=== PATIENT | female | born 1955 | race Caucasian/White ===

== ENCOUNTER 2016-04-27 10:27 | Outpatient (CLI) | payer MEDICAID | END 2016-04-27 10:28 | disposition home or self-care (01) | DX: Z79.01 Long term (current) use of anticoagulants (principal) ==

== ENCOUNTER 2016-05-08 16:30 | Outpatient (CLI) | payer MEDICAID | END 2016-05-08 16:31 | DX: N39.0 Urinary tract infection, site not specified (principal) ==

== ENCOUNTER 2016-05-09 10:02 | Outpatient (CLI) | payer MEDICAID | END 2016-05-09 10:03 | disposition home or self-care (01) | DX: N18.4 Chronic kidney disease, stage 4 (severe) (principal); N39.0 Urinary tract infection, site not specified ==

== ENCOUNTER 2016-05-11 13:14 | Outpatient (CLI) | payer MEDICAID | END 2016-05-11 13:15 | disposition home or self-care (01) | DX: N18.4 Chronic kidney disease, stage 4 (severe) (principal) ==

== ENCOUNTER 2016-05-18 09:47 | Outpatient (CLI) | payer MEDICAID | END 2016-05-18 09:48 | disposition home or self-care (01) | DX: Z79.01 Long term (current) use of anticoagulants (principal) ==

== ENCOUNTER 2016-05-21 08:30 | Outpatient (CLI) | payer MEDICAID | END 2016-05-21 08:31 | disposition home or self-care (01) | DX: N39.0 Urinary tract infection, site not specified (principal) ==

== ENCOUNTER 2016-06-07 14:31 | Outpatient (CLI) | payer MEDICAID | END 2016-06-07 14:32 | disposition home or self-care (01) | DX: Z79.01 Long term (current) use of anticoagulants (principal) ==

== ENCOUNTER 2016-06-22 10:01 | Outpatient (CLI) | payer MEDICAID | END 2016-06-22 10:02 | disposition home or self-care (01) | DX: Z79.01 Long term (current) use of anticoagulants (principal) ==

== ENCOUNTER 2016-07-03 20:16 | Outpatient (CLI) | payer MEDICAID | END 2016-07-03 20:17 | disposition critical access hospital (66) | DX: R55 Syncope and collapse (principal); S01.81XA Laceration without foreign body of other part of head, initial encounter; W06.XXXA Fall from bed, initial encounter; Y92.003 Bedroom of unspecified non-institutional (private) residence as the place of occurrence of the external cause | CPT/HCPCS: A0425; A0429 ==

== ENCOUNTER 2016-07-03 20:34 | Emergency (ER) | payer MEDICAID ==
[2016-07-03] MEDS ORDERED: LIDOCAINE 1% 50 ML MDV SUBQ STA (20:46)
[2016-07-03] MEDS ORDERED: LIDOCAINE 1% 2 ML VIAL ONE ×2 (20:51→20:52)
[2016-07-03] MEDS ORDERED: ONDANSETRON 4 MG/2 ML VIAL ONE (21:11)
[2016-07-03] MEDS ORDERED: ONDANSETRON 4 MG/2 ML VIAL IVP STA (21:12)
[2016-07-03] MEDS ORDERED: MORPHINE 2 MG/ML SYRINGE IVP STA ×2 (21:19→22:47)
[2016-07-03] MEDS ORDERED: MORPHINE 2 MG/ML SYRINGE ONE ×2 (21:35→22:46)
[2016-07-03] MEDS ORDERED: PROMETHAZINE INJ 25 MG in SODIUM CHLORIDE 0.9% 50 ML IV STA (22:02)
[2016-07-03] MEDS ORDERED: PROMETHAZINE 25 MG/1 ML VIAL ONE (22:03)
[2016-07-03] MEDS ORDERED: PROTHROMBIN COMPLEX CONC 500 UNIT VIAL IVP STA (22:12)
[2016-07-03] MEDS ORDERED: PROTHROMBIN COMPLEX CONC 500 UNIT VIAL ONE (22:23)
== END 2016-07-03 23:00 | disposition short-term general hospital (02) ==
DX: S06.5X0A Traumatic subdural hemorrhage without loss of consciousness, initial encounter (principal); S01.81XA Laceration without foreign body of other part of head, initial encounter; S80.01XA Contusion of right knee, initial encounter; W18.39XA Other fall on same level, initial encounter; Y92.009 Unspecified place in unspecified non-institutional (private) residence as the place of occurrence of the external cause; I10 Essential (primary) hypertension; I25.10 Atherosclerotic heart disease of native coronary artery without angina pectoris; I25.2 Old myocardial infarction; I48.91 Unspecified atrial fibrillation; Z95.5 Presence of coronary angioplasty implant and graft; Z79.01 Long term (current) use of anticoagulants; Z95.0 Presence of cardiac pacemaker; Z79.82 Long term (current) use of aspirin
CPT/HCPCS: 36415; 51702; 70450; 80048; 84484; 85025; 85610; 85730; 93005; 93010; 96365; 96375; 99284; 99291; C9132

== ENCOUNTER 2017-03-21 08:00 | Outpatient (CLI) | payer MEDICAID | END 2017-03-21 08:01 | LOC: LAB.R 08:00 | PROVIDERS: ATTEND Nurse Practitioner Family | DX: E11.22 Type 2 diabetes mellitus with diabetic chronic kidney disease (principal) | CPT/HCPCS: 87086 ==

== ENCOUNTER 2017-08-06 08:00 | Outpatient (CLI) | payer MEDICAID ==
[2017-08-06 17:35] LABS: MUDS CUTOFF CONCENTRATIONS CUTOFF CONC BELOW:
[2017-08-06 18:22] LABS: AMPHETAMINE SCREEN,URINE NEGATIVE (NEGATIVE); BENZODIAZEPINES SCREEN, URINE NEGATIVE (NEGATIVE); COCAINE SCREEN URINE NEGATIVE (NEGATIVE); METHADONE SCREEN, URINE NEGATIVE (NEGATIVE); METHAMPHETAMINES SCREEN, URINE NEGATIVE (NEGATIVE); OPIATE SCREEN, URINE NEGATIVE (NEGATIVE); OXYCODONE SCREEN, URINE NEGATIVE (NEGATIVE); PROPOXYPHENE SCREEN, URINE NEGATIVE (NEGATIVE); TRICYCLIC ANTIDEPRESSANT,URINE NEGATIVE (NEGATIVE)
== END 2017-08-06 08:01 | disposition home or self-care (01) ==
LOC: LAB.R 08:00
PROVIDERS: ATTEND Nurse Practitioner Family
DX: Z79.891 Long term (current) use of opiate analgesic (principal)
CPT/HCPCS: 80306

== ENCOUNTER 2017-08-22 12:53 | Outpatient (CLI) | payer MEDICAID ==
[2017-08-22 17:48] LABS: BASOPHILS # (AUTO) 0.1 10^3/uL (0.0-0.1); BASOPHILS % (AUTO) 1.1 %; EOSINOPHILS # (AUTO) 0.2 10^3/uL (0.0-0.7); HGB - HEMOGLOBIN 9.3 g/dL (12.0-16.0); LYMPHOCYTES # (AUTO) 1.4 10^3/uL (1.5-3.5); MEAN CORPUSCULAR HEMOGLOBIN 29.8 pg (27.0-31.0); MEAN CORPUSCULAR HGB CONC 32.7 g/dL (32.0-36.0); MEAN PLATELET VOLUME 9.8 fL (7.9-10.8); MONOCYTES # (AUTO) 0.5 10^3/uL (0.0-1.0); MONOCYTES % (AUTO) 6.3 %; NEUTROPHILS % (AUTO) 69.6 %; PLT - PLATELET COUNT 223 10^3/uL (130-450); RED BLOOD COUNT 3.12 10^6/uL (4.20-5.40); RED CELL DISTRIBUTION WIDTH 12.5 % (12.0-15.0); WHITE BLOOD COUNT 7.1 x10^3/uL (4.8-10.8)
[2017-08-22 18:20] LABS: HB2 TOTAL 10.1 g/dL; HEMOGLOBIN A1C 0.62 g/dL; HEMOGLOBIN A1C % 7.8 % (4.6-6.2)
[2017-08-22 18:59] LABS: ALBUMIN 3.7 g/dL (3.2-5.5); ALBUMIN/GLOBULIN RATIO 0.9 (1.0-2.2); BILIRUBIN,TOTAL 0.5 mg/dL (0.2-1.0); TOTAL PROTEIN 7.7 g/dL (6.7-8.2)
== END 2017-08-22 12:54 | disposition home or self-care (01) ==
LOC: LAB.F 12:53
PROVIDERS: ATTEND Nurse Practitioner Family
DX: E11.22 Type 2 diabetes mellitus with diabetic chronic kidney disease (principal); D53.9 Nutritional anemia, unspecified; I49.5 Sick sinus syndrome; Z79.891 Long term (current) use of opiate analgesic; G90.1 Familial dysautonomia [Riley-Day]; N19 Unspecified kidney failure; I10 Essential (primary) hypertension; I25.2 Old myocardial infarction; Z86.79 Personal history of other diseases of the circulatory system; I48.91 Unspecified atrial fibrillation; Z79.899 Other long term (current) drug therapy; Z95.0 Presence of cardiac pacemaker
CPT/HCPCS: 36415; 80050; 82043; 83036; 83540; 83880; 84466

== ENCOUNTER 2018-04-19 17:51 | Outpatient (CLI) | payer MEDICAID | END 2018-04-19 17:52 | disposition home or self-care (01) | LOC: EMS 17:51 | PROVIDERS: ATTEND Surgery | DX: R11.2 Nausea with vomiting, unspecified (principal); N18.4 Chronic kidney disease, stage 4 (severe) | CPT/HCPCS: A0425; A0429; A0999 ==

== ENCOUNTER 2018-12-23 11:11 | Outpatient (CLI) | payer MEDICARE, MEDICAID ==
[2018-12-23 11:58] LABS: ALT ALANINE AMINOTRANSFERASE 14 IU/L (10-60); AST ASPARTATE AMINOTRANSFERASE 12 IU/L (10-42); CHOL/HDL RATIO 2.2 (<4.4); CHOLESTEROL 138 mg/dL; HDL CHOLESTEROL 63 mg/dL; LDL CHOLESTEROL,CALCULATED 59 mg/dL; LDL/HDL RATIO 0.9 (<4.4); VLDL CHOLESTEROL 16 mg/dL
== END 2018-12-23 11:12 | disposition home or self-care (01) ==
LOC: LAB 11:11
PROVIDERS: ATTEND Internal Medicine
DX: E78.5 Hyperlipidemia, unspecified (principal)
CPT/HCPCS: 36415; 80061; 83721; 84450; 84460

== ENCOUNTER 2019-01-25 12:32 | Emergency (ER) | payer MEDICARE, MEDICAID ==
[2019-01-25] MEDS ORDERED: SODIUM CHLORIDE 0.9% 1,000 ML IV ONE ×2 (12:54→14:07)
--- NOTE | 2019-01-25 12:57 | ED Physician Documentation ---
PD HPI NVD - Stated complaint Stated Complaint: VOMITING - Chief complaint Chief Complaint: Abd Pain - History obtained from History obtained from: Patient - History of Present Illness Timing - onset: Other (This is a 63-year-old woman with history of autonomic dysautonomia Her labile blood pressures eventually caused renal failure. She had a surgery 2 years ago because the autonomic issue was felt due to an aberrant artery at the brainstem and she had cranial surgery to correct this. She still Occasionally has labile blood pressures which cause nausea and vomiting. Starting 4 days ago she developed high blood pressures which she treated with marijuana and hydralazine. Despite that she continued to vomit and was unable to keep down p.o. Phenergan. At this point she just feels very dehydrated and is still nauseous but thinks at this point it is due to the dehydration as opposed to the primary issue as her blood pressures have better after using nitro patch. She denies any abdominal pain or fever. No changes in bowel movements. She does peritoneal dialysis which she skipped last night but she did do on Saturday night.) Review of Systems Ten Systems: 10 systems reviewed and negative Constitutional: reports: Fatigue. denies: Fever, Chills GI: reports: Nausea, Vomiting. denies: Abdominal Pain, Diarrhea PD PAST MEDICAL HISTORY - Past Medical History Past Medical History: Yes Cardiovascular: Hypertension, Coronary artery disease, [place], Atrial fibrillation, Arrhythmia Respiratory: None Endocrine/Autoimmune: None GI: None : None HEENT: None Psych: None Musculoskeletal: None Derm: None - Past Surgical History Past Surgical History: Yes Cardiovascular: Coronary stent, Pacemaker HEENT: Tonsil/Adenoidectomy - Present Medications Home Medications: Ambulatory Orders Medication Instructions Recorded Confirmed Aspirin 81 mg DAILY 02/03/16 05/22/18 Atorvastatin Calcium 40 mg DAILY 02/03/16 05/22/18 LORazepam [Ativan] 0.5 mg PO BID PRN 02/03/16 05/22/18 Promethazine Supp [Phenergan Supp] 25 mg BID PRN 02/03/16 05/22/18 Cholecalciferol (Vitamin D3) 1 cap PO DAILY 07/03/16 05/22/18 [Vitamin D3] HYDROcodone/ACET 10/325 [[place] 10 1 tab PO QID PRN 07/03/16 05/22/18 mg/325 mg] Nitroglycerin [Nitrostat] 0.3 mg SL PRN MDD 0.9 05/22/18 Sodium Chloride 1 gm PO DAILY 05/22/18 05/22/18 - Allergies Allergies/Adverse Reactions: Allergies Allergy/AdvReac Type Severity Reaction Status Date / Time felodipine Allergy Unknown Verified 01/25/19 12:47 lisinopril Allergy Hives Verified 01/25/19 12:47 Sulfa (Sulfonamide AdvReac Intermediate Hives Verified 01/25/19 12:47 Antibiotics) amlodipine besylate * AdvReac Unknown Unknown Verified 01/25/19 12:47 [From [facility]] losartan [Losartan] AdvReac Unknown Unknown Verified 01/25/19 12:47 - Social History Does the pt smoke?: No Smoking Status: Never smoker Does the pt drink ETOH?: No Does the pt have substance abuse?: No - Immunizations Immunizations are current?: No - POLST Patient has POLST: No PD ED PE NORMAL - Vitals Vital signs reviewed: Yes - General General: Alert and oriented X 3, No acute distress - HEENT HEENT: Other (Dry mucous membranes) - Neck Neck: Supple, no meningeal sign, No bony TTP - Cardiac Cardiac: RRR, No murmur - Respiratory Respiratory: No respiratory distress, Clear bilaterally - Abdomen Abdomen: Other (Diminished bowel tones, nontender, there is a peritoneal dialysis catheter in the right mid abdomen without evidence of infection.) - Extremities Extremities: No edema - Neuro Neuro: Alert and oriented X 3, Normal speech Results - Vitals Vitals: Vital Signs - 24 hr 01/25/19 01/25/19 12:46 14:58 Temperature 37 C Heart Rate 85 85 Respiratory 20 Rate Blood Pressure 134/68 H O2 Saturation 98 97 Oxygen O2 Source Room air - Labs Labs: Laboratory Tests 01/25/19 13:06 Sodium 137 Potassium 3.8 Chloride 99 L Carbon Dioxide 25 Anion Gap 13.0 BUN 64 H Creatinine 5.0 H Estimated GFR (MDRD) 9 L Glucose 227 H Calcium 8.5 Total Bilirubin 0.6 AST 14 ALT 11 Alkaline Phosphatase 89 Total Protein 7.5 Albumin 3.5 Globulin 4.0 Albumin/Globulin Ratio 0.9 L Lipase 37 PD MEDICAL DECISION MAKING - ED course ED course: This is a 63-year-old woman who presents with episode of vomiting, no evidence of bowel obstruction, her electrolytes are okay. She is on peritoneal dialysis. She is had this several times before due to her autonomic dysautonomia and felt like IV fluids would be helpful and curative. After 2 L of fluid she felt much better and was no longer nauseous, passed an oral challenge, remained nontender on abdominal examination Departure - Departure Disposition: 01 Home, Self Care Clinical Impression: Dehydration Vomiting Qualifiers: Vomiting type: unspecified Vomiting Intractability: non-intractable Nausea presence: without nausea Qualified Code(s): R11.11 - Vomiting without nausea Condition: Good Record reviewed to determine appropriate education?: Yes Instructions: ED Dehydration, ED Nausea Vomiting Comments: Return to anytime for new worsening symptoms, do your dialysis tonight as usual.
[2019-01-25 13:26] LABS: ALBUMIN 3.5 g/dL (3.2-5.5); ALBUMIN/GLOBULIN RATIO 0.9 (1.0-2.2); BILIRUBIN,TOTAL 0.6 mg/dL (0.2-1.0); CALCIUM 8.5 mg/dL (8.5-10.3); TOTAL PROTEIN 7.5 g/dL (6.7-8.2)
[2019-01-25 15:02] VITALS: BP 188/84
== END 2019-01-25 15:45 | disposition home or self-care (01) ==
LOC: ED 12:32
DX: E86.0 Dehydration (principal); R11.11 Vomiting without nausea; I10 Essential (primary) hypertension
CPT/HCPCS: 36415; 80053; 83690; 96360; 99284

== ENCOUNTER 2019-10-27 15:13 | Outpatient (CLI) | payer MEDICARE, MEDICAID ==
[2019-10-27 15:40] LABS: CALCIUM 9.3 mg/dL (8.5-10.3); CREATININE 5.7 mg/dL (0.4-1.0)
[2019-10-27 15:47] LABS: HEMOGLOBIN A1C 0.86 g/dL; HEMOGLOBIN A1C % 9.3 % (4.6-6.2)
== END 2019-10-27 15:14 | disposition home or self-care (01) ==
LOC: LAB 15:13
PROVIDERS: ATTEND Internal Medicine
DX: E11.22 Type 2 diabetes mellitus with diabetic chronic kidney disease (principal); N18.5 Chronic kidney disease, stage 5
CPT/HCPCS: 36415; 80048; 83036

== ENCOUNTER 2020-02-16 13:01 | Outpatient (CLI) | payer MEDICARE, MEDICAID ==
[2020-02-16 13:55] LABS: ALBUMIN 3.6 g/dL (3.2-5.5); CALCIUM 9.6 mg/dL (8.5-10.3); CREATININE 6.6 mg/dL (0.4-1.0); MAGNESIUM 2.5 mg/dL (1.7-2.8); PHOSPHORUS 7.1 mg/dL (2.5-4.6)
== END 2020-02-16 13:02 | disposition home or self-care (01) ==
LOC: LAB 13:01
PROVIDERS: ATTEND Internal Medicine Nephrology
DX: N18.6 End stage renal disease (principal)
CPT/HCPCS: 36415; 80069; 83735

== ENCOUNTER 2020-02-22 13:54 | Outpatient (CLI) | payer MEDICARE, MEDICAID ==
[2020-02-22 14:19] LABS: BILIRUBIN,URINE NEGATIVE (NEGATIVE); GLUCOSE, URINE (UA) NEGATIVE (NEGATIVE); KETONES,URINE (UA) TRACE mg/dL (NEGATIVE); LEUKOCYTE ESTERASE, URINE MODERATE (NEGATIVE); NITRITE,URINE NEGATIVE (NEGATIVE); OCCULT BLOOD,URINE NEGATIVE (NEGATIVE); PROTEIN,URINE 30 mg/dL (NEGATIVE); UROBILINOGEN,URINE 0.2 (NORMAL) E.U./dL (NORMAL)
[2020-02-22 14:24] LABS: BASOPHILS # (AUTO) 0.1 10^3/uL (0.0-0.1); BASOPHILS % (AUTO) 0.6 %; EOSINOPHILS % (AUTO) 0.2 %; HGB - HEMOGLOBIN 11.3 g/dL (12.0-16.0); LYMPHOCYTES # (AUTO) 1.3 10^3/uL (1.5-3.5); LYMPHOCYTES % (AUTO) 12.5 %; MEAN CORPUSCULAR HEMOGLOBIN 30.5 pg (27.0-31.0); MEAN CORPUSCULAR HGB CONC 31.7 g/dL (32.0-36.0); MEAN CORPUSCULAR VOLUME 96.5 fL (81.0-99.0); MEAN PLATELET VOLUME 10.4 fL (7.9-10.8); MONOCYTES # (AUTO) 0.6 10^3/uL (0.0-1.0); MONOCYTES % (AUTO) 5.7 %; NEUTROPHILS # (AUTO) 8.4 10^3/uL (1.5-6.6); NEUTROPHILS % (AUTO) 80.5 %; PLT - PLATELET COUNT 249 10^3/uL (130-450); RED CELL DISTRIBUTION WIDTH 13.1 % (12.0-15.0); WHITE BLOOD COUNT 10.5 x10^3/uL (4.8-10.8)
[2020-02-22 14:31] LABS: CLARITY,URINE CLEAR (CLEAR); RBC,URINE 0-5 /HPF (0-5); SQUAMOUS EPITHELIAL CELL,UR RARE Squamous (<= Few)
[2020-02-22 14:32] LABS: BACTERIA,URINE Few /HPF (None Seen); CASTS, URINE 0-2 Course Granular /LPF; EPITHELIAL CELLS,UR RARE Transitional /HPF (<= Few)
[2020-02-22 15:09] LABS: ALBUMIN 3.8 g/dL (3.2-5.5); CALCIUM 9.3 mg/dL (8.5-10.3); PHOSPHORUS 7.9 mg/dL (2.5-4.6)
[2020-02-22 15:15] LABS: CREATININE 8.5 mg/dL (0.4-1.0)
== END 2020-02-22 13:55 | disposition home or self-care (01) ==
LOC: LAB 13:54
PROVIDERS: ATTEND Internal Medicine Nephrology
DX: N18.6 End stage renal disease (principal); Z99.2 Dependence on renal dialysis
CPT/HCPCS: 36415; 80069; 81001; 83735; 85025; 87086

== ENCOUNTER 2020-11-04 15:58 | Outpatient (CLI) | payer MEDICARE, MEDICAID ==
[2020-11-04 16:21] LABS: HCT - HEMATOCRIT 33.4 % (37.0-47.0)
== END 2020-11-04 15:59 | disposition home or self-care (01) ==
LOC: LAB 15:58
PROVIDERS: ATTEND Internal Medicine Nephrology
DX: N18.6 End stage renal disease (principal); D63.1 Anemia in chronic kidney disease
CPT/HCPCS: 36415; 85014; 85018

== ENCOUNTER 2021-04-05 09:18 | Outpatient (CLI) | payer MEDICARE, MEDICAID ==
[2021-04-05 14:08] LABS: HCT - HEMATOCRIT 42.1 % (37.0-47.0); HGB - HEMOGLOBIN 14.2 g/dL (12.0-16.0); MEAN CORPUSCULAR HEMOGLOBIN 31.1 pg (27.0-31.0); MEAN CORPUSCULAR HGB CONC 33.7 g/dL (32.0-36.0); MEAN CORPUSCULAR VOLUME 92.1 fL (81.0-99.0); MEAN PLATELET VOLUME 10.8 fL (7.9-10.8); RED BLOOD COUNT 4.57 10^6/uL (4.20-5.40); RED CELL DISTRIBUTION WIDTH 13.9 % (12.0-15.0); WHITE BLOOD COUNT 7.4 x10^3/uL (4.8-10.8)
[2021-04-05 14:59] LABS: ALBUMIN 3.4 g/dL (3.2-5.5); CALCIUM 10.2 mg/dL (8.5-10.3); CARBON DIOXIDE - CO2 21 mmol/L (21-32); CHLORIDE 85 mmol/L (101-111); CHOL/HDL RATIO 2.5 (<4.4); CHOLESTEROL 92 mg/dL; GFR - MDRD 6 (>89); GLUCOSE 289 mg/dL (70-100); HDL CHOLESTEROL 37 mg/dL; LDL CHOLESTEROL,CALCULATED 37 mg/dL; MAGNESIUM 2.3 mg/dL (1.7-2.8); PHOSPHORUS 7.3 mg/dL (2.5-4.6); POTASSIUM 3.9 mmol/L (3.5-5.0); SODIUM 127 mmol/L (135-145); TRIGLYCERIDES 89 mg/dL; VLDL CHOLESTEROL 18 mg/dL
[2021-04-05 15:19] LABS: BUN - BLOOD UREA NITROGEN 171 mg/dL (6-20)
== END 2021-04-05 09:19 | disposition home or self-care (01) ==
LOC: LAB.S 09:18
PROVIDERS: ATTEND Internal Medicine Nephrology
DX: N18.6 End stage renal disease (principal)
CPT/HCPCS: 36415; 80061; 80069; 83721; 83735; 85027

== ENCOUNTER 2021-05-19 08:00 | Outpatient (CLI) | payer MEDICARE, MEDICAID ==
[2021-05-19 20:34] LABS: HCT - HEMATOCRIT 27.4 % (37.0-47.0); HGB - HEMOGLOBIN 8.7 g/dL (12.0-16.0); MEAN CORPUSCULAR HGB CONC 31.8 g/dL (32.0-36.0); MEAN CORPUSCULAR VOLUME 94.5 fL (81.0-99.0); MEAN PLATELET VOLUME 10.3 fL (7.9-10.8); RED BLOOD COUNT 2.9 10^6/uL (4.20-5.40); RED CELL DISTRIBUTION WIDTH 14.3 % (12.0-15.0); WHITE BLOOD COUNT 7.3 x10^3/uL (4.8-10.8)
[2021-05-19 21:18] LABS: ALBUMIN 2.7 g/dL (3.2-5.5); ALBUMIN/GLOBULIN RATIO 0.8 (1.0-2.2); BILIRUBIN,TOTAL 0.8 mg/dL (0.2-1.0); CALCIUM 9.2 mg/dL (8.5-10.3); CREATININE 5.4 mg/dL (0.4-1.0); PHOSPHORUS 5.3 mg/dL (2.5-4.6); POTASSIUM 3.4 mmol/L (3.5-5.0); TOTAL PROTEIN 6.1 g/dL (6.7-8.2)
== END 2021-05-19 23:59 | disposition home or self-care (01) ==
LOC: LAB.R 08:00
PROVIDERS: ATTEND Physician Assistant
DX: N18.6 End stage renal disease (principal)
CPT/HCPCS: 80053; 84100; 85027

== ENCOUNTER 2021-05-30 09:30 | Outpatient (CLI) | payer MEDICARE, MEDICAID | END 2021-05-30 09:31 | disposition home or self-care (01) | LOC: PC 09:30 | PROVIDERS: ATTEND Nurse Practitioner Adult Health | DX: Z51.5 Encounter for palliative care (principal); G89.29 Other chronic pain; G90.1 Familial dysautonomia [Riley-Day]; I13.2 Hypertensive heart and chronic kidney disease with heart failure and with stage 5 chronic kidney disease, or end stage renal disease; N18.6 End stage renal disease; I50.9 Heart failure, unspecified; R13.10 Dysphagia, unspecified; R11.2 Nausea with vomiting, unspecified; R73.9 Hyperglycemia, unspecified; Z79.84 Long term (current) use of oral hypoglycemic drugs; Z79.899 Other long term (current) drug therapy; Z99.2 Dependence on renal dialysis; Z74.01 Bed confinement status; Z66 Do not resuscitate; Z79.891 Long term (current) use of opiate analgesic; K59.03 Drug induced constipation; T40.2X5A Adverse effect of other opioids, initial encounter; F41.9 Anxiety disorder, unspecified; R63.0 Anorexia; R53.83 Other fatigue; M54.2 Cervicalgia; R51.9 Headache, unspecified; R07.0 Pain in throat; R07.89 Other chest pain | CPT/HCPCS: 99344 ==

== ENCOUNTER 2021-06-14 07:00 | Outpatient (CLI) | payer MEDICARE, MEDICAID ==
[2021-06-14 20:15] LABS: HCT - HEMATOCRIT 24.6 % (37.0-47.0); HGB - HEMOGLOBIN 8.1 g/dL (12.0-16.0); MEAN CORPUSCULAR HEMOGLOBIN 31.5 pg (27.0-31.0); MEAN CORPUSCULAR HGB CONC 32.9 g/dL (32.0-36.0); MEAN CORPUSCULAR VOLUME 95.7 fL (81.0-99.0); MEAN PLATELET VOLUME 10.1 fL (7.9-10.8); RED BLOOD COUNT 2.57 10^6/uL (4.20-5.40); RED CELL DISTRIBUTION WIDTH 15.9 % (12.0-15.0); WHITE BLOOD COUNT 8.2 x10^3/uL (4.8-10.8)
[2021-06-14 20:30] LABS: ALBUMIN 2.6 g/dL (3.2-5.5); ALBUMIN/GLOBULIN RATIO 0.8 (1.0-2.2); BILIRUBIN,TOTAL 0.6 mg/dL (0.2-1.0); CALCIUM 9.4 mg/dL (8.5-10.3); POTASSIUM 3.3 mmol/L (3.5-5.0); TOTAL PROTEIN 5.7 g/dL (6.7-8.2)
== END 2021-06-14 23:59 | disposition home or self-care (01) ==
LOC: LAB.R 07:00
PROVIDERS: ATTEND Internal Medicine Nephrology
DX: N18.6 End stage renal disease (principal)
CPT/HCPCS: 80053; 84100; 85027

== ENCOUNTER 2021-06-28 10:30 | Outpatient (CLI) | payer MEDICARE, MEDICAID ==
--- NOTE | 2021-06-28 16:55 | CONSULTATION NOTE ---
Palliative Care Follow Up - Referral Referring Provider: Dr. Mauro Aden Time of Visit: [id number] Referral setting: Home Referral Reason: Acute on Chronic Pain/CKD 5 on peritoneal dialysis/Bedbound status - Information Sources Records reviewed: Previous records reviewed, Other (patient logs) History/Review of Systems obtained from: Patient, Family ( Kyle) Exam limitations: Clinical condition (patient min. verbal; answers not congruent) - History of Present Illness Update Brief HPI Update: This is a 65-year-old female for end-stage renal disease, currently on peritoneal dialysis, known CAD s/p drug-eluting stent to RCA 07/13, persistent atrial fib, known sick sinus syndrome, s/p dual-chamber pacemaker and ischemic cardiomyopathy. Patient has continued to deteriorate fairly rapidly since March, with worsening labs, decreased ability to eat, bedbound status, and worsening autonomic dysfunction. She has remained persistently bedbound, did work with home PT/OT with no improvement. Patient has been cared for by her family since her first brain surgery in 11/2015. Her daughter moved in at that t aamir to assist, she and her brother are [employer] workers, her Kyle is her primary caregiver whom I am meeting with today.She continues to fluctuate as far as awareness, cognitive functioning, and though presents as high risk for choking has not choked as best they know so far. Patient is in a hospital bed now which has eased care. She continues with lethargy, time she is quite clear and conversant and engaged and others difficult to arouse. is concerned about medications pain overall. Has been on gabapentin 100 mg for about a month, with improved pain management, but concerned as if it is cumulative and sedation. Patient currently only on small dose of lorazepam 0.25 mg at bedtime to help, has needed less hydrocodone 5 mg / 325 mg 1-2 a day, patient is unable to localize pain, but does demonstrate pain behaviors with loud moaning and responds with relaxation with medication. Other issue is the peritoneal dialysis, patient continues, with the dwell time at during day of 1500 mils, he is usually drained off her absorbs 200 -600 mils. He is still giving her fluids, she is getting about 32 ounces of water, is unable to eat, so is giving her "protein shakes" up to 4 a day average up to 6 at times. Patient per has not been given any protein restrictions, though this does equal 150 g, suspect this is not appropriate in the context of her disease process, has worked with a dietitian but has not found her helpful. Unable to find other alternatives for her to eat or drink, has only had solid food few bites may be half a dozen times over the last few months. Her blood sugars have been running okay with an average of 170 in the last 30 days. Her last labs on 06/14 shows sodium 129, potassium 3.3, BUN is actually decreased to 125 from 133 on 05/19, creatinine remains at 5.0, and GFR at 9. Her total protein is 5.7, with albumin of 2.6, she remains persistently anemic at 8.1.She has not though had further nausea or vomiting, this is seem to have resolved. Past Medical History: Congestive heart failure, hypertension, coronary artery disease, [place], atrial fib, valve disorder, sick sinus syndrome, headache/migraine, hyperglycemia attributed to peritoneal dialysis solution, chronic constipation, blindness, depression, anxiety, fatigue, posterior fossa decompression craniotomy for left vertebral artery without improvement of blood pressure known as rostral ventral lateral Medullary syndrome. 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 They do augment her health care with integrative treatment. She does have quite complex care, set up for peritoneal dialysis since 2019. Both her daughter and her son are [employer] workers, it is a multigenerational household with 9 people living there. Her remains her main caregiver but is back to work 4 days a week. Medications/Allergies - Medications Home Medications: Ambulatory Orders Medication Instructions Recorded Confirmed Promethazine Supp [Phenergan Supp] 25 mg BID PRN 02/03/16 06/29/21 Cholecalciferol (Vitamin D3) 1 cap PO DAILY 07/03/16 06/29/21 [Vitamin D3] Nitroglycerin [Nitrostat] 0.3 mg SL PRN PRN MDD 0.9 05/22/18 06/29/21 Acetaminophen [Tylenol] 1 - 2 tab PO Q4HR PRN 05/31/21 06/29/21 Gentamicin 0.3% Ophth Drops 1 ml TOP DAILY MDD at exit of 05/31/21 06/29/21 [Garamycin] peritoneal catheter HYDROcod/ACETAM 5/325 [[place] 5/325] 0.5 - 1 tab PO Q4HR PRN MDD 5 05/31/21 06/29/21 Heparin [Heparin Sodium] 3,000 units SUBQ DAILY 05/31/21 06/29/21 Insulin Lispro [Humalog] 5 unit SUBQ DAILY MDD titrate to BS 05/31/21 06/29/21 LORazepam [Ativan] 0.25 - 0.5 mg PO BID PRN 05/31/21 06/29/21 Rosuvastatin Calcium [Crestor] 40 mg PO DAILY 05/31/21 06/29/21 Senna [Senokot] 1 - 2 tab PO BID PRN 05/31/21 06/29/21 Sevelamer [Renagel] 2 tab PO TID MDD titrate to intake 05/31/21 06/29/21 Vit B Comp No.3/Folic/C/Biotin 1 tab PO DAILY 05/31/21 06/29/21 [Nephro-[facility] Rx Tablet] polyethylene glycoL 3350 [Miralax] 17 gm PO BID 05/31/21 06/29/21 Ondansetron [Zuplenz] 4 mg PO Q6HR PRN 06/29/21 06/29/21 Pregabalin [Lyrica] 25 mg PO .QOD 06/29/21 06/29/21 - Allergies Allergies/Adverse Reactions: Allergies Allergy/AdvReac Type Severity Reaction Status Date / Time felodipine Allergy Unknown Verified 01/25/19 12:47 lisinopril Allergy Hives Verified 01/25/19 12:47 Sulfa (Sulfonamide AdvReac Intermediate Hives Verified 01/25/19 12:47 Antibiotics) amlodipine besylate * AdvReac Unknown Unknown Verified 01/25/19 12:47 [From [facility]] losartan [Losartan] AdvReac Unknown Unknown Verified 01/25/19 12:47 Review of Systems - Constitutional Constitutional: reports: Fatigue (sleeping more), Weakness, Poor appetite, Weight loss (last known weight 151; LMAC 29 on admit) - Eyes Eyes: reports: Vision loss, Other (keeps eyes closed most of time;) - Ears, Nose & Throat Ears, Nose & Throat: reports: Dry mouth - Cardiovascular Cardiovascular: reports: Decr. exercise tolerance. denies: Chest pain - Respiratory Respiratory: denies: SOB at rest - Gastrointestinal Gastrointestinal: reports: Nausea (much improved), Poor appetite, Early satiety, Other (unable to "eat"). denies: Constipation, Vomiting (resolved needing less ondansetron....2 tabs since ordered) - Genitourinary Genitourinary: reports: Incontinence (dark and smells of "ammonia"). denies: Hematuria - Musculoskeletal Musculoskeletal: reports: Other (bedbound; needs assist with bed mobility) - Integumentary Integumentary: reports: Dryness - Neurological Neurological: reports: General weakness, Dizziness, Memory problems, Other (slowed response with cognition) - Psychiatric Psychiatric: reports: Anxiety - Endocrine Endocrine: reports: Other (elevated BS) - Hematologic/Lymphatic Hematologic/Lymph: reports: Anemia. denies: Recurrent infections - All Other Systems All Other Systems: reports: Reviewed and negative Physical Exam - Vital Signs Temperature: 97.3 C Pulse Rate: 83 Respiratory Rate: 16 O2 Saturation: 96 (ra @ rest) Blood Pressure: 102/68 (manual; diff to hear ) - Physical Exam General Appearance: positive: Lethargic, Other (engages min. during visit unless spoken directly to) Eyes Bilateral: positive: Other (eyes closed; some dried drainage; enc refresh drops/moisturize) ENT: negative: Pharyngeal erythema, Oral lesions Neck: positive: No JVD, Trachea midline Cardiovascular: positive: Irregularly irregular Respiratory: positive: No respiratory distress, Diminished in bases (anteriorly) Abdomen: positive: Soft, Tenderness, Obese, Other (rounded with peritoneal drain) Skin: positive: Pallor, Dryness. negative: Rash Extremities: positive: No pedal edema Neurologic/Psychiatric: positive: Disoriented to time, Weakness, Slurred/abnml speech, Depressed mood/affect, Flat affect Palliative Care - POLST Patient has POLST: Yes POLST Status: DNR, Selective Treatment Pain: Pain improved, Comment (unable to localize; moaning ?reflexive) Feelings of wellbeing/Perceived Quality of Life: Comment ( perceives QOL as continuing to deteriorate) Sleep: Variable sleep pattern Constipation: Yes, Opoid induced, Managed (using miralax BID) Performance Status: Patient is bedbound needing assistance for bed mobility, and assistance with feeding. Total workers compensation claims assistant for any kind of pericare and bathing, more helpful with two persons. Bed has made a difference - Palliative Care Discussion: The patient's quality of life is continued decline, patient is currently bedbo und. Did make attempt through home health to improve access to back to wheelchair and join family in living room with TV. This was not an attainable goal unfortunately. Patient is quite isolated, does have some area times of clarity and interaction. Though has been reports these are becoming less and less. Patient is total care, continues to express to him that this is still acceptable, though is becoming less able to participate or demonstrate awareness of insight into his situation. He says that she has expressed she is "not ready to ", but patient's body continues to deteriorate. Patient's goals are to be focused on comfort and quality of life, spending time with family, and would like to at home. In separate conversation with , it is quite unnerving, as patient does have times where she is quite nonresponsive, and seems like she is "on her way out" but then rallies. As long as patient still demonstrates some decision-making capacity he will continue to provide interventions, aware at any point he can transition to hospice and withdraw care. Results - Lab Results Lab results reviewed: Yes Impression and Recommendations - Palliative Care Impression: This is a 65-year-old woman with fairly complicated presentation with end-stage renal disease on peritoneal dialysis. She does have known severe coronary artery disease, most recently with NSTEMI 07/13 including s/p pacemaker and stents, dealing with sequela of dysautonomia, worsening symptom burden, bedbound status, and fluctuating cognitive status. Patient is having some improvement in her nausea and vomiting, continues with anorexia and difficulty meeting caloric needs, has fluctuating levels of pain, anxiety, depression and severe persistent fatigue. Palliative care providing support for pain and symptom management, initiating follow-up for advanced care planning, coordinating care with nephrology and home health team as well as anticipatory guidance Recommendations/Counseling Done: 1. Acute on chronic pain. Patient's pain is multifactorial, including fluctuating neuropathic pain related to her dysautonomia, peripheral neuropathy and hyper analgesia, chronic back pain, neck pain radiating to her head with intermittent headaches. She had been initiated on gabapentin most a month ago, concern regarding increasing lethargy and attributing to gabapentin buildup. We did discuss transition to pregabalin shorter acting, could go every other day, and not lose improved pain management. She has been needing less hydrocodone, patient herself is unable to really participate in any kind of conversation regarding her pain. Family are basing decisions based on observations and it is complicated and patient does have some reflexive moaning as well as moaning that she uses to communicate her discomfort. 2. End-stage renal disease currently on peritoneal dialysis. Her numbers continue to still be quite alarming but "improving". The continue to work nephrology, home health RN is been providing blood draws, though it appears that having a pending discharge. 3. Protein calorie malnutrition. Seems to be some confusion regarding patient's protein allowances, did follow-up with dietitian, GG 1.2 to 1.3/kg for peritoneal dialysis. This was shared which would be about 3-4 shakes versus the pushing of 6. Discussed other alternatives for caloric intake that patient can manage, including soups, looked at higher potassium foods that she is at 3.3, and encourage small frequent feedings.Nausea and vomiting have improved, thus this has helped with her intake. 4. Bedbound status. Patient at this point in time will not be able to meet her goals on this, have ordered hospital bed unfortunately several months out. Did get a loaner from [employer], has made care much easier. 5. Sore throat. Patient has not had any further recurrence of this. 6. Lethargy. This is most likely multifactorial as well. Patient does have low sodium, they are looking at adding salt though this is been fairly persis tent. Will change gabapentin to pregabalin, encourage minimize use of benzodiazepines/lorazepam, can use half tab of hydrocodone 5 mg / 325 mg and evaluate response versus full tab, she is only taking 1-2 in 24 hours. 7. Advanced care planning. Patient does have a POLST we did last time, completed with DN AR/DNI and comfort measures. At this point in time still choosing to continue with peritoneal dialysis, though would be appropriate to transitioning time to hospice. Family is supportive of patient's goals, though as patient's quality of life declines, concerned regarding long-term impl ications for this. 60 minutes with greater than 50% of this done in counseling and coordination of care with dietitian and [facility], labs sent in had not received yet, reviewed with , review of pain and symptom management and anticipatory guidance provided
== END 2021-06-28 10:31 | disposition home or self-care (01) ==
LOC: PC 10:30
PROVIDERS: ATTEND Nurse Practitioner Adult Health
DX: Z51.5 Encounter for palliative care (principal); I13.2 Hypertensive heart and chronic kidney disease with heart failure and with stage 5 chronic kidney disease, or end stage renal disease; N18.6 End stage renal disease; I50.9 Heart failure, unspecified; G89.29 Other chronic pain; E46 Unspecified protein-calorie malnutrition; J02.9 Acute pharyngitis, unspecified; R53.83 Other fatigue; Z99.2 Dependence on renal dialysis; Z74.01 Bed confinement status; Z66 Do not resuscitate
CPT/HCPCS: 99350

== ENCOUNTER 2021-08-01 16:00 | Outpatient (CLI) | payer MEDICARE, MEDICAID ==
--- NOTE | 2021-08-01 18:41 | CONSULTATION NOTE ---
Palliative Care Follow Up - Referral Referring Provider: Dr. Aden Time of Visit: [phone] Referral setting: Home Referral Reason: Chronic Pain/ESRD/Goals of Care - Information Sources Records reviewed: Previous records reviewed History/Review of Systems obtained from: Patient, Family ( Kyle) Exam limitations: Clinical condition - History of Present Illness Update Brief HPI Update: This is a 65-year-old woman with end-stage renal disease, currently on peritoneal dialysis, known CAD s/p drug-eluting stent to RCA 07/13. Patient has significant cardiac history with persistent atrial fibs, known sick sinus syndrome, s/p dual-chamber pacemaker and ischemic cardiomyopathy. Patient's most significant symptom burden comes from her worsening autonomic dysfunction. She has been persistently bedbound, is being cared for her family since her first brain surgery in 11/2015. She continues to fluctuate as far as awareness, cognitive functioning, today though she is quite alert and engaged. Though she still cannot functionally answer complicated questions, nor is she consistent with yes/no answers, she was alert and in interactive with caregiver and myself. Patient has done better on pregabalin 25 mg in the evening, as well as small doses of lorazepam 0.25 mg 1-2 times a day, and hydrocodone 5 mg / 325 mg 1-2 times a day if unable to relieve pain with Tylenol. Patient has difficulty describing or localizing pain, does describe sharp shooting intermittent pain particularly lower extremities, also with some esophageal reflux discomfort, and continues to be challenged with getting adequate calories but does well with fluids. Patient is taking 2 protein shakes a day, as well as small bites of o ther kinds of soft foods, does report barrier is early satiety, difficulty with swallowing, as well as GERD. Past Medical History: Congestive heart failure, hypertension, coronary artery disease, [place], atrial fibs, valve disorder, sick sinus syndrome nose syndrome, headache/migraine, hyperglycemia attributed to peritoneal dialysis solution, chronic constipation, blindness, depression, anxiety, fatigue, posterior fossa decompression carried out to me for left vertebral artery, dystonia. Social History - Living Situation Living arrangement: At home Living Situation: With spouse/s.o., With family Support System: Patient lives at home with her , they have been for 28 years. She has 4 children, 2 from previous marriage. 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 They do augment her health care with integrative treatment. She does have quite complex care with her peritoneal dialysis since 2018. Both her daughter and her son are [employer] workers, it is a multigenerational household with 9 people living there. Her remains her main caregiver, but is working 4 days a week. He is planning to go on vacation at end of month, his sister has gifted him with a trip to [place] Medications/Allergies - Medications Home Medications: Ambulatory Orders Medication Instructions Recorded Confirmed Promethazine Supp [Phenergan Supp] 25 mg BID PRN 02/03/16 08/02/21 Cholecalciferol (Vitamin D3) 1 cap PO DAILY 07/03/16 08/02/21 [Vitamin D3] Nitroglycerin [Nitrostat] 0.3 mg SL PRN PRN MDD 0.9 05/22/18 08/02/21 Acetaminophen [Tylenol] 1 - 2 tab PO Q4HR PRN 05/31/21 08/02/21 Gentamicin 0.3% Ophth Drops 1 ml TOP DAILY MDD at exit of 05/31/21 08/02/21 [Garamycin] peritoneal catheter HYDROcod/ACETAM 5/325 [[place] 5/325] 0.5 - 1 tab PO Q4HR PRN MDD 5 05/31/21 08/02/21 Heparin [Heparin Sodium] 3,000 units SUBQ DAILY 05/31/21 08/02/21 Insulin Lispro [Humalog] 5 - 10 unit SUBQ DAILY MDD titrate 05/31/21 08/02/21 to BS LORazepam [Ativan] 0.25 - 0.5 mg PO BID PRN 05/31/21 08/02/21 Rosuvastatin Calcium [Crestor] 40 mg PO DAILY 05/31/21 08/02/21 Senna [Senokot] 1 - 2 tab PO BID PRN 05/31/21 08/02/21 Sevelamer [Renagel] 1 tab PO BID MDD titrate to intake 05/31/21 08/02/21 Vit B Comp No.3/Folic/C/Biotin 1 tab PO DAILY 05/31/21 08/02/21 [Nephro-Silke Rx Tablet] polyethylene glycoL 3350 [Miralax] 17 gm PO BID 05/31/21 08/02/21 Ondansetron [Zuplenz] 4 mg PO Q6HR PRN 06/29/21 08/02/21 Pregabalin [Lyrica] 25 mg PO DAILY 06/29/21 08/02/21 - Allergies Allergies/Adverse Reactions: Allergies Allergy/AdvReac Type Severity Reaction Status Date / Time felodipine Allergy Unknown Verified 01/25/19 12:47 lisinopril Allergy Hives Verified 01/25/19 12:47 Sulfa (Sulfonamide AdvReac Intermediate Hives Verified 01/25/19 12:47 Antibiotics) amlodipine besylate * AdvReac Unknown Unknown Verified 01/25/19 12:47 [[address] [facility]] losartan [Losartan] AdvReac Unknown Unknown Verified 01/25/19 12:47 Review of Systems - Constitutional Constitutional: reports: Fatigue, Weakness, Poor appetite, Weight loss (last known weight 151; LMAC 29 on admit) - Eyes Eyes: reports: Vision loss, Other (keeps eyes closed most of time;) - Ears, Nose & Throat Ears, Nose & Throat: reports: Dry mouth - Cardiovascular Cardiovascular: reports: Lightheadedness, Decr. exercise tolerance. denies: Chest pain - Respiratory Respiratory: denies: SOB at rest - Gastrointestinal Gastrointestinal: reports: Constipation (challenge to get Miralax), Nausea (much improved), Reflux/heartburn, Poor appetite, Early satiety, Other (unable to "eat"). denies: Vomiting (resolved needing less ondansetron....2 tabs since ordered) - Genitourinary Genitourinary: reports: Incontinence (is voiding). denies: Hematuria - Musculoskeletal Musculoskeletal: reports: Other (bedbound; needs assist with bed mobility; wanted to do exercises today; did some bed exercises) - Integumentary Integumentary: reports: Dryness - Neurological Neurological: reports: General weakness, Dizziness, Memory problems, Other (slowed response with cognition; brighter today) - Psychiatric Psychiatric: reports: Anxiety (unable to verbalize), Hallucinations (less with pregabalin; still intermittent; denies distress with this) - Endocrine Endocrine: reports: Other (elevated BS) - Hematologic/Lymphatic Hematologic/Lymph: reports: Anemia (improved 10.2). denies: Recurrent inf ections - All Other Systems All Other Systems: reports: Reviewed and negative Physical Exam - Vital Signs Temperature: 97.1 C Pulse Rate: 86 Respiratory Rate: 16 O2 Saturation: 99 Blood Pressure: 108/72 - Physical Exam General Appearance: positive: Other (participated in visit today but very exhausted by end) Eyes Bilateral: positive: Other (eyes opened most of visit today) ENT: negative: Pharyngeal erythema, Oral lesions Neck: positive: No JVD, Trachea midline Cardiovascular: positive: Irregularly irregular Respiratory: positive: No respiratory distress, Diminished in bases (anteriorly) Abdomen: positive: Soft, Tenderness, Obese, Other (rounded with peritoneal drain) Skin: positive: Pallor, Dryness. negative: Rash Extremities: positive: No pedal edema Neurologic/Psychiatric: positive: Disoriented to time, Weakness, Depressed mood/affect, Flat affect Palliative Care - POLST Patient has POLST: Yes POLST Status: DNR, Comfort Measures Pain: Pain improved, Location (generalized; unable to localize) Feelings of wellbeing/Perceived Quality of Life: Fair, Acceptable (per patient) Sleep: Sleeps well Constipation: Yes, Opoid induced, Intermittent constipation Performance Status: Patient is bedbound, needing assistance for bed mobility and assistance with feeding. Total assistance for any. Care and bathing, changing bed takes 2 people, that is made a difference. They did hear from someone about the delivery, but it was not delivered. Follow-up from [facility], unable to verify they had called patient's house. We will follow-up tomorrow. - Palliative Care Discussion: Patient has short periods of clarity and engagement, with . revisits goals frequently, patient continuing to want to pursue peritoneal dialysis. She still has fairly poor quality of life with fluctuating pain, has been more uncomfortable with the cold fronts coming in related to her dystonia, and continues to struggle with getting adequate calories. Family quite supportive of patient, patient still perceives erwin and enjoyment spending time with family. Spoke with though at length, if patient were to take a turn to for the worse and not able to recover or engage in further ability to communicate her goals. He does not want her dying in the hospital, alone, or receiving treatments that would prolong her suffering. At this point his goals are for her to continue to get support, palliative care approach, and transition to hospice when ready to give up dialysis. He reports there is some tension with daughter regarding this, but feels that this would still be consistent with patient's wishes. Results - Lab Results Lab results reviewed: Yes Lab and Imaging Results: Recent labs from last week sodium 133, potassium 3.3, BUN 83 improved from 125, creatinine 5.06, T low protein 6.2, albumin 3.2, A1c 5.7, iron 46, ferritin 421 Impression and Recommendations - Palliative Care Impression: This is a 65-year-old woman with fairly complicated presentation with end-stage renal disease on peritoneal dialysis. She does have known severe cardiac issues, sequela of dysautonomia, worsening symptom burden, bedbound status, and fluctuating cognitive status. Patient has had improvement in level of alertness with minimizing pain meds and benzos, switching to pregabalin. She still has intermittent nausea, vomiting has improved. She still is not meeting caloric needs but is doing better with fluid intake. Palliative care providing support for pain and symptom management, advanced care planning, and anticipatory guidance. Recommendations/Counseling Done: 1. Chronic pain syndrome. Patient's pain is multifactorial, including fluctuating neuropathic pain related to her dysautonomia, peripheral neuropathy, and hyper analgesia, chronic back pain, and neck pain radiating to her head with intermittent headaches. She has done better on the pregabalin 25 mg, still with some mild hallucinations but improved off gabapentin. She has been needing less hydrocodone, using 1-2 tabs after trialing acetaminophen. She really cannot identify or localize her pain, family interprets pain behaviors which are quite complicated as she does have some reflexive moaning. 2. End-stage renal disease currently on peritoneal dialysis. Her numbers continue to be improved, patient currently continuing per her goals of care. Patient perceives still quality of life in her current state of being. 3. Protein calorie malnutrition. Patient is taking 2 shakes a day, versus p atient is 6, her BUN has improved. Patient is doing small bites and better with fluid intake, nausea and vomiting have almost resolved. Patient though does have complaints of early satiety, GERD, suspect has some gastric stasis. Will trial omeprazole 20 mg daily for 2 weeks and evaluate response. 4. Bedbound status. Patient is time is unable to meet her goals, hospital bed still pending. Does have loaner from [employer], has made care much easier. We will follow-up on orders at this point have heard from DME, but have not been delivered. 5. Advanced care planning. Patient does have POLST that we did last time with DN AR/DNI and comfort measures. At this time still choosing peritoneal dialysis, has been does revisit goals but goal is to not return to the hospital, and transition to hospice when patient no longer able to participate in decisions or decides to withdraw dialysis support 45 minutes with greater than 50% of this done in counseling regarding symptom m anagement, goals of care, review of patient's care needs, and coordination of care with nephrology.
== END 2021-08-01 16:01 | disposition home or self-care (01) ==
LOC: PC 16:00
PROVIDERS: ATTEND Nurse Practitioner Adult Health
DX: Z51.5 Encounter for palliative care (principal); G89.4 Chronic pain syndrome; I13.2 Hypertensive heart and chronic kidney disease with heart failure and with stage 5 chronic kidney disease, or end stage renal disease; N18.6 End stage renal disease; I50.9 Heart failure, unspecified; R73.9 Hyperglycemia, unspecified; Z99.2 Dependence on renal dialysis; Z79.4 Long term (current) use of insulin; Z74.01 Bed confinement status; Z95.5 Presence of coronary angioplasty implant and graft; I48.19 Other persistent atrial fibrillation; I49.5 Sick sinus syndrome; I25.5 Ischemic cardiomyopathy; Z95.0 Presence of cardiac pacemaker; Z66 Do not resuscitate; Z74.3 Need for continuous supervision; K59.03 Drug induced constipation; T40.2X5A Adverse effect of other opioids, initial encounter; K21.9 Gastro-esophageal reflux disease without esophagitis; E46 Unspecified protein-calorie malnutrition; G90.1 Familial dysautonomia [Riley-Day]; R11.0 Nausea; Z79.899 Other long term (current) drug therapy
CPT/HCPCS: 99349

== ENCOUNTER 2021-08-18 10:44 | Outpatient (CLI) | payer MEDICARE, MEDICAID ==
[2021-08-18 10:49] LABS: BASOPHILS % (AUTO) 0.6 %; EOSINOPHILS # (AUTO) 0.2 10^3/uL (0.0-0.7); EOSINOPHILS % (AUTO) 3.1 %; HCT - HEMATOCRIT 33.5 % (37.0-47.0); HGB - HEMOGLOBIN 10.6 g/dL (12.0-16.0); LYMPHOCYTES # (AUTO) 0.5 10^3/uL (1.5-3.5); LYMPHOCYTES % (AUTO) 8.3 %; MEAN CORPUSCULAR HEMOGLOBIN 31.4 pg (27.0-31.0); MEAN CORPUSCULAR HGB CONC 31.6 g/dL (32.0-36.0); MEAN CORPUSCULAR VOLUME 99.1 fL (81.0-99.0); MEAN PLATELET VOLUME 9.6 fL (7.9-10.8); MONOCYTES # (AUTO) 0.5 10^3/uL (0.0-1.0); MONOCYTES % (AUTO) 7.7 %; NEUTROPHILS # (AUTO) 5.2 10^3/uL (1.5-6.6); PLT - PLATELET COUNT 266 10^3/uL (130-450); RED BLOOD COUNT 3.38 10^6/uL (4.20-5.40); RED CELL DISTRIBUTION WIDTH 14.1 % (12.0-15.0); WHITE BLOOD COUNT 6.5 x10^3/uL (4.8-10.8)
[2021-08-18 11:02] LABS: ALBUMIN 2.4 g/dL (3.2-5.5); ALBUMIN/GLOBULIN RATIO 0.7 (1.0-2.2); BILIRUBIN,TOTAL 0.4 mg/dL (0.2-1.0); CALCIUM 9.5 mg/dL (8.5-10.3); CREATININE 4.6 mg/dL (0.4-1.0); PHOSPHORUS 5.1 mg/dL (2.5-4.6); POTASSIUM 3.4 mmol/L (3.5-5.0); TOTAL PROTEIN 5.8 g/dL (6.7-8.2)
--- NOTE | 2021-08-18 14:07 | CONSULTATION NOTE ---
Palliative Care Follow Up - Referral Referring Provider: Dr. Mauro Aden Time of Visit: [phone] Referral setting: Home Referral Reason: ESRD/Chronic Pain - Information Sources Records reviewed: Previous records reviewed History/Review of Systems obtained from: Patient, Family (Kyle ) Exam limitations: Clinical condition (STM deficits; able to participate in visit today though bright and engaged) - History of Present Illness Update Brief HPI Update: This is a 65-year-old woman with end-stage renal disease, currently on peritoneal dialysis, known CAD s/p drug-eluting stent to RCA 07/13. Patient has significant cardiac history with persistent atrial fibrillation, known sick sinus syndrome, s/p dual-chamber pacemaker and ischemic cardiomyopathy. Patient's most significant symptom burden comes from her worsening autonomic dysfunction. She has been persistently bedbound, and cared for family since her first brain surgery 11/2015. Today she is quite alert and engaged, suspect her labs are continue to improve. They had cut back on her total protein intake and seems to have improved situation overall. perceives he was "literally poisoning her". Patient is eating better, taking 2 protein shakes a day, top Ramen, macaroni and cheese. She has actually gained some weight her back is up to 32 cm. She does have persistent cough though attributes this to allergies. He does have intermittent pain, triggered by her autonomic dysfunction. She is doing better on the pregabalin 25 mg evening, she is having some hallucinations with this but finds it acceptable and trade off for her pain relief. She is down to 1-2 times a day hydrocodone 5 mg / 325 mg, as well as small doses of lorazepam 0.251-2 times a day for anxiety but for her autonomic dysfunction. She is unable to localize the pain, other than abdominal and "all over. She does have some sharp shooting pain in her lower extremities but has been controlled recently with the pregabalin.Perceives her quality of life is acce ptable, Kyle her revisits this on a regular basis, it does appear to be improving overall given her original visit back in May. Past Medical History: CHF, hypertension, CAD, [place], atrial fibs, valve disorder, sick sinus syndrome, headache/migraine, hyperglycemia attributed to peritoneal dialysis solution, chronic constipation, blindness, depression, anxiety, fatigue, dystonia Social History - Living Situation Living arrangement: At home Living Situation: With spouse/s.o., With family Support System: Patient lives at home with her Kyle, they have been for 28 years. She has 4 children, 2 from a previous marriage. 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 She does have complex care with her peritoneal dialysis since 2019. Both her , daughter and son provide care, daughter and son are [employer] workers. There is a multigenerational household with 9 people living there. Her remains her main caregiver but is working 4 days a week. He is planning to go on vacation end of month, his daughter is getting him with a trip to [place] and he is quite excited for a break. Medications/Allergies - Medications Home Medications: Ambulatory Orders Medication Instructions Recorded Confirmed Promethazine Supp [Phenergan Supp] 25 mg BID PRN 02/03/16 08/20/21 Cholecalciferol (Vitamin D3) 1,000 mcg PO DAILY 07/03/16 08/20/21 [Vitamin D3] Nitroglycerin [Nitrostat] 0.3 mg SL PRN PRN MDD 0.9 05/22/18 08/20/21 Acetaminophen [Tylenol] 1 - 2 tab PO Q4HR PRN 05/31/21 08/20/21 Gentamicin 0.3% Ophth Drops 1 ml TOP DAILY MDD at exit of 05/31/21 08/20/21 [Garamycin] peritoneal catheter HYDROcod/ACETAM 5/325 [[place] 5/325] 0.5 - 1 tab PO Q4HR PRN MDD 5 05/31/21 08/20/21 Heparin [Heparin Sodium] 3,000 units SUBQ DAILY 05/31/21 08/20/21 Insulin Lispro [Humalog] 5 - 10 unit SUBQ DAILY MDD titrate 05/31/21 08/20/21 to BS LORazepam [Ativan] 0.25 - 0.5 mg PO BID PRN 05/31/21 08/20/21 Rosuvastatin Calcium [Crestor] 20 mg PO DAILY 05/31/21 08/20/21 Senna [Senokot] 1 - 2 tab PO BID PRN 05/31/21 08/20/21 Sevelamer [Renagel] 1 tab PO DAILY MDD titrate to 05/31/21 08/20/21 intake Vit B Comp No.3/Folic/C/Biotin 1 tab PO DAILY 05/31/21 08/20/21 [Nephro-Silke Rx Tablet] polyethylene glycoL 3350 [Miralax] 17 gm PO BID 05/31/21 08/20/21 Ondansetron [Zuplenz] 4 mg PO Q6HR PRN 06/29/21 08/20/21 Pregabalin [Lyrica] 25 mg PO DAILY 06/29/21 08/20/21 Aspirin [[place] Aspirin] 81 mg PO DAILY 08/20/21 08/20/21 - Allergies Allergies/Adverse Reactions: Allergies Allergy/AdvReac Type Severity Reaction Status Date / Time felodipine Allergy Unknown Verified 01/25/19 12:47 lisinopril Allergy Hives Verified 01/25/19 12:47 Sulfa (Sulfonamide AdvReac Intermediate Hives Verified 01/25/19 12:47 Antibiotics) amlodipine besylate * AdvReac Unknown Unknown Verified 01/25/19 12:47 [From [facility]] losartan [Losartan] AdvReac Unknown Unknown Verified 01/25/19 12:47 Review of Systems - Constitutional Constitutional: reports: Fatigue, Weakness, Weight gain (last known weight 151; LMAC 29 on admit; today LMAC 32 on left) - Eyes Eyes: reports: Vision loss (blind), Other (keeps eyes closed most of time;) - Ears, Nose & Throat Ears, Nose & Throat: reports: Dry mouth - Cardiovascular Cardiovascular: reports: Decr. exercise tolerance. denies: Chest pain - Respiratory Respiratory: denies: SOB at rest - Gastrointestinal Gastrointestinal: reports: Constipation (challenge to get Miralax in), Nausea (much improved), Reflux/heartburn, Early satiety, Other (needs to be fed). denies: Vomiting (resolved needing less ondansetron....2 tabs since ordered) - Genitourinary Genitourinary: reports: Incontinence (is voiding large amounts of urine). denies: Hematuria - Musculoskeletal Musculoskeletal: reports: Other (bedbound; needs assist with bed mobility) - Integumentary Integumentary: reports: Dryness - Neurological Neurological: reports: General weakness, Dizziness, Memory problems - Psychiatric Psychiatric: reports: Hallucinations (less with pregabalin; still intermittent; denies distress with this) - Endocrine Endocrine: reports: Other (elevated BS) - Hematologic/Lymphatic Hematologic/Lymph: reports: Anemia (improved 10.2). denies: Recurrent inf ections - All Other Systems All Other Systems: reports: Reviewed and negative Physical Exam - Vital Signs Temperature: 97.1 C Pulse Rate: 86 Respiratory Rate: 16 O2 Saturation: 97 Blood Pressure: 122/78 - Physical Exam General Appearance: positive: Other (participated in visit today very bright and engage) Eyes Bilateral: positive: Other (eyes opened most of visit today) ENT: negative: Pharyngeal erythema, Oral lesions Neck: positive: No JVD, Trachea midline Cardiovascular: positive: Irregularly irregular Respiratory: positive: No respiratory distress, Diminished in bases (anteriorly) Abdomen: positive: Soft, Tenderness, Other (rounded with peritoneal drain) Skin: positive: Pallor, Dryness. negative: Rash Extremities: positive: No pedal edema Neurologic/Psychiatric: positive: Mood/affect nml, Disoriented to time, Weakn ess, Flat affect Palliative Care - POLST Patient has POLST: Yes POLST Status: DNR, Comfort Measures Pain: Pain improved Feelings of wellbeing/Perceived Quality of Life: Good, Acceptable, Improved Sleep: Sleeps well Constipation: Yes, Opoid induced, Intermittent constipation Performance Status: Patient is bedbound, needing assistance for bed mobility and feeding. Total assistance for care and bathing, changing bed takes 2 people the hospital bed though nade difference. - Palliative Care Discussion: Patient is continue to improve alertness, eating, able to engage and is awake more often. Has very reports periods of clarity have improved, she still has poor quality of life with fluctuating pain and her dystonia. Family remains supportive of patient, patient still perceives erwin and enjoyment with her current quality of life. At this point in time goals are to continue to support her continuing treatment as long as quality of life acceptable. Results - Lab Results Lab results reviewed: Yes Fish Bones: 08/18/21 10:15 08/18/21 10:15 Lab and Imaging Results: Lab Results x24hrs 08/18/21 08/18/21 Range/Units 10:15 10:15 WBC 6.5 (4.8-10.8) x10^3/uL RBC 3.38 L (4.20-5.40) 10^6/uL Hgb 10.6 L (12.0-16.0) g/dL Hct 33.5 L (37.0-47.0) % MCV 99.1 H (81.0-99.0) fL MCH 31.4 H (27.0-31.0) pg MCHC 31.6 L (32.0-36.0) g/dL RDW 14.1 (12.0-15.0) % Plt Count 266 (130-450) 10^3/uL MPV 9.6 (7.9-10.8) fL Neut # (Auto) 5.2 (1.5-6.6) 10^3/uL Lymph # (Auto) 0.5 L (1.5-3.5) 10^3/uL [place] # (Auto) 0.5 (0.0-1.0) 10^3/uL Eos # (Auto) 0.2 (0.0-0.7) 10^3/uL Baso # (Auto) 0.0 (0.0-0.1) 10^3/uL Absolute Nucleated RBC 0.00 x10^3/uL Nucleated RBC % 0.0 /100WBC Sodium 137 (135-145) mmol/L Potassium 3.4 L (3.5-5.0) mmol/L Chloride 96 L (101-111) mmol/L Carbon Dioxide 27 (21-32) mmol/L Anion Gap 14.0 H (6-13) BUN 77 H (6-20) mg/dL Creatinine 4.6 H (0.4-1.0) mg/dL Estimated GFR (MDRD) 10 L (>89) Glucose 181 H (70-100) mg/dL Calcium 9.5 (8.5-10.3) mg/dL Phosphorus 5.1 H (2.5-4.6) mg/dL Total Bilirubin 0.4 (0.2-1.0) mg/dL AST 11 (10-42) IU/L ALT 13 (10-60) IU/L Alkaline Phosphatase 62 (42-121) IU/L Total Protein 5.8 L (6.7-8.2) g/dL Albumin 2.4 L (3.2-5.5) g/dL Globulin 3.4 (2.1-4.2) g/dL Albumin/Globulin Ratio 0.7 L (1.0-2.2) Impression and Recommendations - Palliative Care Impression: This is a 66-year-old woman with fairly complicated presentation of end-stage renal disease on peritoneal dialysis. She does have known severe cardiac issues, sequela of dystonia, bedbound status, fluctuating cognitive status. Patient is continue to have some improvement in her level her narcotics, labs, and intake. Palliative care providing support for pain and symptom management, advanced care planning, and anticipatory guidance. Recommendations/Counseling Done: Chronic pain syndrome. Patient's pain is multifactorial, including fluctuating neuropathic pain related to her dysautonomia, peripheral neuropathy, and hyper analgesia, chronic back pain, and neck pain radiating to her head with intermittent headaches. She is on pregabalin 25 mg, with still some mild hallucinations but acceptable. She is needing less hydrocodone using 1-2 tabs after trialing acetaminophen. Patient perceives her pain is better and better controlled. 2. End-stage renal disease currently on peritoneal dialysis. Her numbers continue to improve, labs drawn today. Patient is currently still on 12 hours of 12 time, with leaving 1000 mL and for hydration. As he reports yesterday he had chips are about 300 mils. Patient still perceives quality of life in her current state of being we will continue dialysis. 3. Protein calorie malnutrition. Patient is taking 2 protein shakes a day ve rsus a 6, her BUN continues to improve. She is doing better with food and fluid intake. Doing well overall. 4. Bedbound status. Patient is unable to meet her goals to be out of bed. Still awaiting delivery of hospital bed. 5. Advanced care planning. Patient does have POLST with DNR/DNI and comfort measures. At this time still choosing peritoneal dialysis, goals are to continue support her current quality of life as things actually are continue to improve. At the point patient is not meeting goals, are able to participate in decision-making will transition to hospice. 50 minutes with greater than 50% of this time in counseling regarding symptom management, [facility] counseling provided regarding psychosocial support, and goals of care as well as anticipatory guidance.
== END 2021-08-18 10:45 | disposition home or self-care (01) ==
LOC: PC 10:44
PROVIDERS: ATTEND Nurse Practitioner Adult Health
DX: Z51.5 Encounter for palliative care (principal); G89.4 Chronic pain syndrome; I13.2 Hypertensive heart and chronic kidney disease with heart failure and with stage 5 chronic kidney disease, or end stage renal disease; N18.6 End stage renal disease; I50.9 Heart failure, unspecified; E46 Unspecified protein-calorie malnutrition; K59.03 Drug induced constipation; T40.2X5A Adverse effect of other opioids, initial encounter; Z79.899 Other long term (current) drug therapy; Z99.2 Dependence on renal dialysis; Z74.01 Bed confinement status; Z74.1 Need for assistance with personal care; Z66 Do not resuscitate
CPT/HCPCS: 36415; 80053; 84100; 85025; 99349

== ENCOUNTER 2021-10-17 10:49 | Outpatient (CLI) | payer MEDICARE, MEDICAID ==
[2021-10-17 10:59] LABS: BASOPHILS # (AUTO) 0.1 10^3/uL (0.0-0.1); BASOPHILS % (AUTO) 0.8 %; EOSINOPHILS # (AUTO) 0.3 10^3/uL (0.0-0.7); EOSINOPHILS % (AUTO) 4.7 %; HCT - HEMATOCRIT 33.5 % (37.0-47.0); HGB - HEMOGLOBIN 10.2 g/dL (12.0-16.0); LYMPHOCYTES # (AUTO) 0.5 10^3/uL (1.5-3.5); LYMPHOCYTES % (AUTO) 8.4 %; MEAN CORPUSCULAR HEMOGLOBIN 28.9 pg (27.0-31.0); MEAN CORPUSCULAR HGB CONC 30.4 g/dL (32.0-36.0); MEAN CORPUSCULAR VOLUME 94.9 fL (81.0-99.0); MONOCYTES # (AUTO) 0.5 10^3/uL (0.0-1.0); MONOCYTES % (AUTO) 8.4 %; NEUTROPHILS # (AUTO) 4.8 10^3/uL (1.5-6.6); NEUTROPHILS % (AUTO) 77.4 %; PLT - PLATELET COUNT 242 10^3/uL (130-450); RED BLOOD COUNT 3.53 10^6/uL (4.20-5.40); RED CELL DISTRIBUTION WIDTH 15.2 % (12.0-15.0); WHITE BLOOD COUNT 6.2 x10^3/uL (4.8-10.8)
[2021-10-17 11:20] LABS: ALBUMIN 2.7 g/dL (3.2-5.5); ALBUMIN/GLOBULIN RATIO 0.8 (1.0-2.2); BILIRUBIN,TOTAL 0.4 mg/dL (0.2-1.0); CALCIUM 9.4 mg/dL (8.5-10.3); CREATININE 4.8 mg/dL (0.4-1.0); PHOSPHORUS 5.9 mg/dL (2.5-4.6); POTASSIUM 3.2 mmol/L (3.5-5.0); TOTAL PROTEIN 6.1 g/dL (6.7-8.2)
[2021-10-17 11:32] LABS: FERRITIN 390.5 ng/mL (11.0-306.8)
== END 2021-10-17 10:50 | disposition home or self-care (01) ==
LOC: LAB.R 10:49
PROVIDERS: ATTEND Nurse Practitioner Adult Health
DX: N18.6 End stage renal disease (principal); N25.81 Secondary hyperparathyroidism of renal origin
CPT/HCPCS: 80053; 82728; 83540; 83970; 84100; 84466; 85025